=== PATIENT | female | born 1990 | race Caucasian/White ===

== ENCOUNTER 2017-04-18 16:19 | Emergency (ER) | payer MEDICAID ==
[~2017-04-18] VITALS: Ht 160 cm; Wt 54.0 kg
[~2017-04-18 16:19] MED LIST: ONDA1TAB16 PO
[2017-04-18 17:15] VITALS: BP 115/77; PULSE 77; RESP 16; TEMP 98.1; O2SAT 100
[2017-04-18] MEDS ORDERED: BIRTH CONTROL PILLS PO (17:41)
[2017-04-18] MEDS ORDERED: LOPE-1 PO (17:41)
[2017-04-18] MEDS ORDERED: HYDR-3580 PO (17:41)
[2017-04-18] MEDS ORDERED: BACT800T5 PO (17:44)
[2017-04-18] MEDS ORDERED: CEPH-460 PO (17:44)
--- NOTE | 2017-04-18 17:54 | PD ---
HPI Chief Complaint: Skin Problem Time Seen by Provider: 17:36 Travel History International Travel<30 days: No Contact w/Intl Traveler<30days: No Traveled to known affect area: No History of Present Illness HPI 27-year-old female presents for evaluation of an area of skin redness on the left schulz. It started as a small bump 2 weeks ago. Has progressed since then. Aching pain, throbbing, worse with palpation. Denies any fevers, chills. No other complaints at this time. PFSH Past Medical History Diminished Hearing: No Gastrointestinal Disorders: Yes (ULCERATIVE COLITIS) Implanted Vascular Access Dvce: No Psychiatric: No Immunizations Current: Yes Tetanus Vaccination: Unknown Influenza Vaccination: No ?: Not LMP: BCP Past Surgical History Section: Yes Genitourinary Surgery: Yes (CSECTION) Other Surgery: Yes Social History Alcohol Use: No Tobacco Use: No Substance Use: No Allergies-Medications (Allergen,Severity, Reaction): Coded Allergies: amoxicillin (Unverified Allergy, Severe, RASHES, 04/18/17) *MDRO Multi-Drug Resistant Organism (Verified Allergy, Unknown, 01/13/14) CDIFF 03/2013 Reported Meds & Prescriptions Reported Meds & Active Scripts Active Keflex (Cephalexin) 500 Mg Capsule 500 Mg PO Q8H 10 Days Bactrim DS (Sulfamethoxazole-Trimethoprim) 800-160 Mg Tab 1 Tab PO BID Reported Hydrocodone-Acetaminophen 7.5 Mg-325 Mg Tab 1 Tab PO Q4H PRN Imodium A-D (Loperamide HCl) 2 Mg Capsule 2 Mg PO DIRECTED PRN One capsule after each loose stool. Not to exceed 8 tablets per day. [ Control Pills] 1 Tab PO DAILY Review of Systems General / Constitutional: No: Fever, Chills Skin: Positive Other (positive for drainage, pain, redness) Physical Exam Narrative GENERAL: Well-developed well-nourished female in no acute distress SKIN: Warm and dry. 4 cm area of erythema with some central purulent drainage on the left lower schulz. No fluctuance. CARDIOVASCULAR: Regular rate and rhythm. No murmur appreciated. RESPIRATORY: No accessory muscle use. Clear to auscultation. Breath sounds equal bilaterally. GASTROINTESTINAL: Abdomen soft, non-tender, nondistended. Hepatic and splenic margins not palpable. MUSCULOSKELETAL: No obvious deformities. No clubbing. No cyanosis. No edema. Data Data Last Documented VS Vital Signs Date Time Temp Pulse Resp B/P (MAP) Pulse Ox O2 Delivery O2 Flow Rate FiO2 04/18/17 17:15 98.1 77 16 115/77 (90) 100 Orders Orders Wound Culture And Gram Stain (04/18/17 17:41) MDM Medical Decision Making Medical Screen Exam Complete: Yes Emergency Medical Condition: Yes Medical Record Reviewed: Yes Differential Diagnosis Cellulitis, abscess, erysipelas, erythema nodosum Narrative Course Examination reveals cellulitis to left pretibial region. Wound culture was performed. The patient is being discharged with Bactrim and Keflex. She reports a vague history of a mild rash to amoxicillin when she was a young child but no hives or evidence of IgE mediated response and therefore she is being given Keflex. Diagnosis Primary Impression: Cellulitis of left leg Additional Instructions: Medication as prescribed. Wash the area daily. Warm compresses several times a day. Return for any new or worsening symptoms. Med/Other Pt SpecificInfo: Prescription(s) given Scripts Cephalexin (Keflex) 500 Mg Capsule 500 MG PO Q8H for Infection for 10 Days, #30 CAP 0 Refills Prov: Bucky Man MD 04/18/17 Sulfamethoxazole-Trimethoprim (Bactrim DS) 800-160 Mg Tab 1 TAB PO BID for Infection, #20 TAB 0 Refills Prov: Bucky Man MD 04/18/17 Disposition: 01 DISCHARGE HOME Condition: Stable Manuel Thompson Apr 18, 2017 17:54
== END 2017-04-18 18:00 | disposition home or self-care (01) ==
LOC: PHED 16:19 → PHEFT 18:00
DX: L03.116 Cellulitis of left lower limb (principal); Z88.0 Allergy status to penicillin; Z79.899 Other long term (current) drug therapy
CPT/HCPCS: 86403; 87070; 87205; 99284

== ENCOUNTER 2017-04-29 19:24 | Emergency (ER) | payer MEDICAID ==
[~2017-04-29] VITALS: Ht 162.6 cm; Wt 54.1 kg
[~2017-04-29 19:24] MED LIST changes: +BACT800T5 PO; +BIRTH CONTROL PILLS PO; +CEPH-460 PO; +HYDR-3580 PO; +LOPE-1 PO; -ONDA1TAB16 PO
[2017-04-29 20:51] VITALS: BP 109/64; PULSE 65; RESP 16; TEMP 98.4; O2SAT 100
--- NOTE | 2017-04-29 21:24 | PD ---
HPI Chief Complaint: Skin Problem Time Seen by Provider: 21:20 Travel History International Travel<30 days: No Contact w/Intl Traveler<30days: No Traveled to known affect area: No History of Present Illness HPI The patient is a 27-year-old female that has had an infected ulcer on the left lower leg for 3 weeks. She was treated by her primary care physician with an antibiotic which she does not remember which antibiotic it was then and she came to the emergency department and was given Keflex was trimethoprim/ sulfamethoxazole. She took this for 10 days. A culture was done in emergency department on the of last month which showed normal skin griselda. She does have a history of MRSA. She developed a skin rash when she was put on Bactrim and Keflex. The skin rash is now resolving. The patient he denies any fever. 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 PFSH Past Medical History Arthritis: Yes Diminished Hearing: No Gastrointestinal Disorders: Yes (ULCERATIVE COLITIS) Implanted Vascular Access Dvce: No Psychiatric: No Immunizations Current: Yes Tetanus Vaccination: Unknown Influenza Vaccination: No ?: Unknown LMP: 01/2017 controll Past Surgical History Section: Yes Genitourinary Surgery: Yes (CSECTION) Other Surgery: Yes Social History Alcohol Use: No Tobacco Use: No Substance Use: No Allergies-Medications (Allergen,Severity, Reaction): Coded Allergies: amoxicillin (Unverified Allergy, Severe, RASHES, 04/29/17) *MDRO Multi-Drug Resistant Organism (Verified Allergy, Unknown, 01/13/14) CDIFF 03/2013 Reported Meds & Prescriptions Reported Meds & Active Scripts Active Reported Hydrocodone-Acetaminophen 7.5 Mg-325 Mg Tab 1 Tab PO Q4H PRN [ Control Pills] 1 Tab PO DAILY Physical Exam Narrative GENERAL: Patient is alert, oriented 3 and slight apparent distress with her skin rash. Her vital signs are normal. SKIN: Focused skin assessment warm/dry. There is a patch about 3 cm diameter on the anterior aspect of the left lower leg. There is also an area of cellulitis which is 10 cm in diameter that surrounds this patch. No red streak is noted. HEAD: Atraumatic. Normocephalic. EYES: Pupils equal and round. No scleral icterus. No injection or drainage. ENT: No nasal bleeding or discharge. Mucous membranes pink and moist. NECK: Trachea midline. No JVD. CARDIOVASCULAR: Regular rate and rhythm. No murmur appreciated. RESPIRATORY: No accessory muscle use. Clear to auscultation. Breath sounds equal bilaterally. GASTROINTESTINAL: Abdomen soft, non-tender, nondistended. Hepatic and splenic margins not palpable. MUSCULOSKELETAL: No obvious deformities. No clubbing. No cyanosis. No edema. NEUROLOGICAL: Awake and alert. No obvious cranial nerve deficits. Motor grossly within normal limits. Normal speech. PSYCHIATRIC: Appropriate mood and affect; insight and judgment normal. Data Data Last Documented VS Vital Signs Date Time Temp Pulse Resp B/P (MAP) Pulse Ox O2 Delivery O2 Flow Rate FiO2 04/29/17 20:51 98.4 65 16 109/64 (79) 100 Orders Orders Mupirocin 2% Oint (Bactroban 2% Oint) (04/29/17 21:45) Doxycycline (Vibramycin) (04/29/17 21:45) [facility] Medical Decision Making Medical Screen Exam Complete: Yes Emergency Medical Condition: Yes Medical Record Reviewed: Yes Differential Diagnosis Cellulitis, infected ulcer, allergic reaction to Keflex or Bactrim, Narrative Course The patient has an infected ulcer which is not responding to antibiotics given this far. She will be put on doxycycline and given Bactroban ointment. She should elevate the leg and use a heating pad on as well as setting interposing a towel between her skin and the pad. She should follow-up with wound clinic. She is on her feet all day and this is probably why the infection has been resistant to treatment. Diagnosis Primary Impression: Infected ulcer of skin Additional Impression: Cellulitis Additional Instructions: Follow-up with the wound clinic. Elevate your leg above the heart. The antibiotic is one tablet twice daily for 10 days and the antibiotic ointment is put on with an extremely thin layer twice daily. Use a heating pad on its lowest setting an interposed a towel between your skin and the pad. Med/Other Pt SpecificInfo: Prescription(s) given Scripts Mupirocin Topical (Bactroban Topical) 22 Gm Cream 1 APPLIC TOPICAL BID for Mgmt Bacterial Infection, #1 TUBE 0 Refills Prov: Anup Angel MD 04/29/17 Doxycycline Hyclate (Doxycycline Hyclate) 100 Mg Cap 100 MG PO BID for Infection, #20 CAP 0 Refills Prov: Anup Angel MD 04/29/17 Disposition: 01 DISCHARGE HOME Condition: Stable Anup Angel MD Apr 29, 2017 21:24
[2017-04-29] MEDS ORDERED: MUPI2%T TOPICAL (21:35)
[2017-04-29] MEDS ORDERED: DOXY100C PO (21:35)
[2017-04-29] MEDS ORDERED: DOXYCYCLINE HYCLATE 100 MG CAP PO ONE (21:45)
[2017-04-29] MEDS ORDERED: MUPIROCIN 2% OINT 22 GM TUBE TOPICAL ONE (21:45)
== END 2017-04-29 22:01 | disposition home or self-care (01) ==
LOC: PHED 19:24 → PHEFT 22:01
DX: L97.929 Non-pressure chronic ulcer of unspecified part of left lower leg with unspecified severity (principal); L03.116 Cellulitis of left lower limb; Z88.1 Allergy status to other antibiotic agents
CPT/HCPCS: 99283